=== PATIENT | female | born 1995 | race Caucasian/White ===

== ENCOUNTER 2018-07-11 02:05 | Emergency (ER) | payer OTHER ==
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
[2018-07-11] MEDS ORDERED: NS 1,000 ML IV ONE (02:14)
[2018-07-11] MEDS ORDERED: IOPAMIDOL (ISOVUE 370) 100 ML BTL IV ONE ×2 (02:22→02:50)
[2018-07-11 02:25] LABS: PLATELET COUNT 253 10^3/uL (150-400)
[2018-07-11 02:34] LABS: INR 0.87 (0.83-1.16)
[2018-07-11] MEDS ORDERED: ACETAMINOPHEN 500 MG TAB PO ONE (04:19)
[2018-07-11] MEDS ORDERED: IBUPROFEN 600 MG TAB PO ONE (04:19)
[2018-07-11 07:23] VITALS: BP 108/61
== END 2018-07-11 07:23 | disposition home or self-care (01) ==
DX: S60.511A Abrasion of right hand, initial encounter (principal); S50.811A Abrasion of right forearm, initial encounter; E86.9 Volume depletion, unspecified; V49.49XA Driver injured in collision with other motor vehicles in traffic accident, initial encounter; Y92.410 Unspecified street and highway as the place of occurrence of the external cause
CPT/HCPCS: G0480; Q9967